=== PATIENT | female | born 1990 | race American Indian/Alaskan Native ===

== ENCOUNTER 2019-01-15 09:25 | Inpatient (IN) | payer MEDICAID, OTHER ==
--- NOTE | 2019-01-15 09:58 | History and Physical Report ---
History of Present Illness Date of examination: 01/15/19 Date of admission: 01/15/19 09:25 Chief complaint: SIUP at 39 weeks an 2 days not in labor. Previous C/section. History of present illness: Patient is a 28 year old , LMP 04/15/18, EDC 01/20/19 at 39 weeks and 2 days gestation who was admitted for elective repeat C/section. She denies any contractions, fluid leakage, or bleeding. She reports good movement. Past History Past Medical History: other (anemia) Past Surgical History: section Family/Genetic History: none Social history: no significant social history - Obstetrical History Expected Date of Delivery: 01/20/19 Actual Gestation: 39 Week(s) 2 Day(s) : 2 Para: 1 Number of Living Children: 1 - Physical Exam Cardiovascular: Normal S1, Normal S2 Lungs: Positive: Clear to auscultation Vulva: both: normal Adnexa: both: normal Deep Tendon Reflex Grade: Normal +2 - Obstetrical FHR: category 1 Uterine Contraction Monitor Mode: External Cervical Dilatation: 0 Cervical Effacement Percentage: 0 station: -2 Uterine Contraction Pattern: Absent Results All other labs normal. Assessment and Plan - Patient Problems (1) 39 weeks gestation of Current Visit: Yes Status: Acute (2) Previous section Current Visit: Yes Status: Acute Plan to address problem: Admit to labor floor. Routine preop labs. IV hydration. Keep NPO. monitoring. Admit to labor floor. Patient was counselled for repeat C/section. Risks, benefits, and alternatives of the procedure were discussed in detail with the patient which included but not limited to the risk of infection, hemorrhage requiring blood transfusion, injury to the bowel or bladder and blood vessels. The patient expressed understanding, her questions were answered, and she gave informed consent. Anesthesia notified. (3) Patient declines vaginal after section () Current Visit: Yes Status: Acute
[2019-01-15] MEDS ORDERED: PITOCin/NS 20 UNIT/1000ML DRIP 20 UNITS/1,000 ML BAG IV SCH ×2 (10:00→14:00)
[2019-01-15] MEDS: LACTATED RINGERS 1,000 ML IV SCH ×3 (10:10→22:14)
[2019-01-15 10:26] LABS: Basophils % (Auto) 0.5 % (0.0-1.8); Eosinophils % (Auto) 0.7 % (0.0-4.3); Hematocrit 34.8 % (30.3-42.9); Hemoglobin 11.4 gm/dl (10.1-14.3); Lymphocytes # (Auto) 1.6 K/mm3 (1.2-5.4); Lymphocytes % (Auto) 30.9 % (13.4-35.0); Mean Corpuscular HGB Conc 33 % (30-34); Mean Corpuscular Volume 85 fl (79-97); Monocytes # (Auto) 0.4 K/mm3 (0.0-0.8); Monocytes % (Auto) 8.8 % (0.0-7.3); Platelet Count 144 K/mm3 (140-440); Red Blood Count 4.09 M/mm3 (3.65-5.03); Red Cell Distribution Width 14.4 % (13.2-15.2)
[2019-01-15] MEDS ORDERED: SUBLIMAZE ONE (10:48)
[2019-01-15] MEDS ORDERED: SODIUM CHLORIDE FLUSH SYRINGE 10 ML IV PRN (11:00)
[2019-01-15] MEDS ORDERED: ANCEF/STERILE WATER 2 GM/20 ML 2 GM/20 ML SYRINGE IV NR (11:30)
[2019-01-15] MEDS ORDERED: ZOFRAN IV PRN ×2 (11:30→13:18)
[2019-01-15] MEDS ORDERED: BICITRA PO NR (11:30)
[2019-01-15] MEDS ORDERED: NARCAN 0.4 MG/1 ML IV PRN ×2 (11:30→13:18)
[2019-01-15] MEDS ORDERED: DILAUDID IV PRN (11:30)
[2019-01-15] MEDS ORDERED: REGLAN IV NR (11:30)
[2019-01-15] MEDS ORDERED: PEPCID IV NR (11:30)
[2019-01-15] MEDS ORDERED: ANCEF IV ONE (11:52)
[2019-01-15] MEDS ORDERED: METHERGINE IM ONE (12:46)
[2019-01-15] MEDS ORDERED: TORADOL ONE (13:02)
[2019-01-15] MEDS ORDERED: MYLICON PO PRN (13:18)
[2019-01-15] MEDS ORDERED: MORPHINE IV PRN (13:18)
[2019-01-15] MEDS ORDERED: MILK OF MAGNESIA PO PRN (13:18)
[2019-01-15] MEDS ORDERED: TORADOL IV PRN (13:18)
[2019-01-15] MEDS ORDERED: LANSINOH TP PRN (13:18)
[2019-01-15] MEDS ORDERED: TYLENOL PO PRN (13:18)
[2019-01-15] MEDS ORDERED: TUCKS PAD TP PRN (13:18)
[2019-01-15] MEDS ORDERED: PHENERGAN PR PRN (13:18)
[2019-01-15] MEDS ORDERED: ANUCORT-HC PR PRN (13:18)
--- NOTE | 2019-01-15 13:21 | Operative Report ---
Operative Report Operative Report: Preoperative diagnosis 1. SIUP at 39 weeks and 2 days gestation not in labor. 2. Previous C/section. 3. Declined . Postoperative diagnosis: Same. Procedure: Repeat low-transverse section. Surgeon: Dr. Chapa Engineering Instructor: none Anesthesia: epidural. IVF: RL 1700 cc EBL: 500 cc Urine: 100 cc clear Complications: none. Intraoperative findings: 1. A female infant found in an EBEN position, delivered at 12:38 PM, Apgars 8 at 1 minute and 9 at 5 minutes, weight 6 lbs. 3 oz. 2. Normal fallopian tubes and ovaries bilaterally. Procedure details: Risks, benefits, and alternatives of the procedure were discussed in detail with the patient which included but not limited to the risk of infection, hemorrhage requiring blood transfusion, injury to the bowel or bladder and blood vessels. The patient expressed understanding, her questions were answered, and she gave informed consent. The patient was taken to the operating room with an IV fluid infusing Ringers lactate. In the operating room, she was placed in a sitting position and given spinal anesthesia. She was then placed in a dorsal supine position with a leftward tilt. Ramirez catheter in Venodyne boots were placed. The abdomen was washed and she was prepared and draped in usual sterile fashion. After confirming adequate anesthesia, the Pfannenstiel skin incision was made in the lower abdomen about 2 cm above the pubic symphysis using the scalpel. This incision was carried down to the underlying fascia using the Bovie. The fascia was opened bilaterally in a curvilinear fashion using the Bovie. 2 straight Kocker clamps were used to grasp the upper edge of the fascia from which the underlying rectus abdominis muscles was dissected off using the Bovie. A similar procedure was done with the lower edge of the fascia to dissect the underlying rectus abdominis muscle. The muscle was bluntly from the midline by pulling. The parietal peritoneum was grasped with 2 hemostat clamps and entered sharply using Metzenbaum scissors. A quick survey of the anatomy revealed a gravid uterus, normal fallopian tubes and ovaries bilaterally. A bladder flap was created. Kody'O retractor was placed in the incision for proper visualization. A low transverse incision was made in the lower uterine segment using the scalpel and extended bilaterally in a curvilinear fashion using bandage scissors. There was copious amount of clear amniotic fluids. The was found in an EBEN position, the head was delivered atraumatically followed by the delivery of the shoulders and the rest of the body at 12:38 PM. The cord was clamped 2 and cut and the infant was handed off to the waiting loss prevention investigator. The infant was a female, Apgars were 8 at 1 minute and 9 at 5 minutes, weight was 6 pounds and 3 ounces. Cord blood was collected. The placenta was delivered manually and it was complete with a three-vessel cord. The uterine cavity was cleaned of clots and debris using dry lap sponges. The uterine incision was repaired in a running locked fashion using 0 Vicryl sutures. A second layer of imbrication was placed. The gutters were cleaned of clots and debris using dry lap sponges. After confirming adequate hemostasis, the instruments were removed from the abdominal cavity. The rectus muscle was reapproximated in an interrupted fashion using 0 Vicryl sutures. The fascia was closed in a running fashion using 0 Vicryl sutures. The skin was closed in a subsutaneous fashion using 4 vicryl on a Jude needle. Sterile dressing was placed. The counts of laps, needles, sponges, and instruments were correct 2. The patient tolerated the procedure well, she was taken to the recovery room in a stable condition.
--- NOTE | 2019-01-15 13:32 | Post Anesthesia Evaluation ---
- Post Anesthesia Evaluation Patient Participated: Yes Airway Patent: Yes Stable Respiratory Function: Yes Nausea/Vomiting: No Temp > 96.8F: Yes Pain Manageable: Yes Adequeate Hydration: Yes Anesthesia Complications: No Block Receding Appropriately: Yes Patient on Ventilator: No Other Comments: Pt to PACU via stretcher. VSS. Explained (via exhibition designer) that spinal would recede and OBGYN would be responsible for pain management on floor. Report to BASS FISHER. Care turned over to nursing staff and request to call me if questions or concerns.
[2019-01-15] MEDS ORDERED: SENOKOT PO PRN (13:43)
[2019-01-15] MEDS ORDERED: SODIUM CHLORIDE FLUSH SYRINGE 10 ML IV SCH (14:00)
[2019-01-15] MEDS: MORPHINE IV PRN (15:08)
[2019-01-15] MEDS: TORADOL IV PRN (22:20)
[2019-01-16 00:56] LABS: Hematocrit 35.1 % (30.3-42.9)
[2019-01-16] MEDS: MORPHINE IV PRN (01:59)
[2019-01-16] MEDS: TORADOL IV PRN (08:00)
--- NOTE | 2019-01-16 09:44 | Progress Note ---
Assessment and Plan A: 28 yo, , POD1 Dressing dry and intact Pain controlled with medication P: Continue routine PP orders Anticipate discharge home in 24-48 hrs Subjective - Subjective Date of service: 01/16/19 (939) Interval history: See admission H & P and operative report Patient reports: appetite normal, voiding normally, pain well controlled (with medications), flatus, ambulating normally, no bowel movement [place]: doing well, bottle feeding Objective - Vital Signs Latest vital signs: Vital Signs Temp Pulse Resp BP BP Pulse Ox 01/16/19 08:32 98.0 F 77 18 101/69 100 01/16/19 05:05 98.5 F 83 18 92/62 95 01/16/19 01:02 97.8 F 71 20 99/65 100 01/15/19 21:19 98.4 F 63 20 104/69 99 01/15/19 14:39 97.6 F 92 H 20 100 01/15/19 14:30 97.6 F 72 20 123/66 98 01/15/19 14:00 92 H 20 102/61 100 01/15/19 13:45 90 18 102/61 100 01/15/19 13:40 91 H 18 100/65 100 01/15/19 13:35 97.6 F 94 H 18 101/63 100 01/15/19 13:32 97.6 F 97 H 12 99/69 100 01/15/19 11:13 98.1 F 93 H 18 101/64 01/15/19 11:07 93 H 101/64 Intake and Output 01/15/19 01/16/19 01/16/19 23:59 07:59 15:59 Intake Total 120 Output Total 1600 1950 300 Balance -1600 -1830 -300 Intake: Oral 120 Output: Urine 1600 1950 300 Indwelling Catheter 1600 1000 Void 950 300 Other: Total, Intake Amount 120 Total, Output Amount 1000 600 300 # Voids Void 2 3 - Exam Breasts: Present: normal Cardiovascular: Present: Regular rate, Normal S1, Normal S2 Lungs: Present: Clear to auscultation, Normal air movement Abdomen: Present: tenderness, normal bowel sounds Uterus: Present: firm, fundal height at umbilicus Extremities: Present: normal Deep Tendon Reflex Grade: Normal +2 Incision: Present: dressed (no shadow drainage noted) - Labs Labs: Abnormal lab results 01/15/19 Range/Units 10:08 [place] % (Auto) 8.8 H (0.0-7.3) %
[2019-01-16] MEDS: FEOSOL PO SCH (09:55)
[2019-01-16] MEDS: PRENATAL VITAMIN PO SCH (09:55)
[2019-01-16] MEDS: PERCOCET 5/325 PO PRN ×3 (09:59→22:09)
[2019-01-16] MEDS: IBUPROFEN PO PRN ×2 (16:07→22:09)
[2019-01-17] MEDS: PERCOCET 5/325 PO PRN ×2 (05:25→12:40)
[2019-01-17] MEDS: IBUPROFEN PO PRN ×2 (05:26→12:39)
[2019-01-17] MEDS: FEOSOL PO SCH (10:12)
[2019-01-17] MEDS: PRENATAL VITAMIN PO SCH (10:12)
--- NOTE | 2019-01-17 10:15 | Progress Note ---
Assessment and Plan A: POD #2 Stable P: Follow routine orders D/C Home today per patient request RTO in One Week Subjective - Subjective Date of service: 01/17/19 Patient reports: appetite normal, voiding normally, pain well controlled, flatus, ambulating normally : doing well, bottle feeding Objective - Vital Signs Latest vital signs: Vital Signs Temp Pulse Resp BP BP Pulse Ox 01/17/19 08:49 97/60 01/17/19 07:10 97.9 F 82 18 82/45 01/17/19 00:44 97.7 F 85 20 94/57 99 01/16/19 17:14 98.2 F 83 18 100/69 100 Intake and Output 01/16/19 01/17/19 01/17/19 22:59 06:59 14:59 Intake Total 840 240 480 Balance 840 240 480 Intake: Oral 480 240 480 Intake, Free Water 360 Other: Total, Intake Amount 480 240 480 # Voids Indwelling Catheter 1 Void 2 - Exam Breasts: Present: normal Cardiovascular: Present: Regular rate Lungs: Present: Clear to auscultation, Normal air movement Abdomen: Present: normal appearance, soft, normal bowel sounds Uterus: Present: normal, firm, fundal height below umbilicus Extremities: Present: normal Incision: Present: normal, dry, intact
--- NOTE | 2019-01-17 10:16 | Discharge Summary ---
Providers - Providers Date of Admission: 01/15/19 09:25 Date of discharge: 01/17/19 Attending physician: KELLIE SMITH MD Primary care physician: KELLIE SMITH MD Hospitalization Reason for admission: section Delivery: Procedure: repeat low transverse Episiotomy: none Laceration: none Incision: normal, dry, intact Other procedures: none complications: none Discharge diagnosis: IUP at term delivered Condition at discharge: Good Disposition: DC-01 TO HOME OR SELFCARE Plan - Discharge Medications Prescriptions: Ibuprofen [Motrin] 800 mg PO Q8HR PRN #30 tablet PRN Reason: Pain, Moderate (4-6) oxyCODONE /ACETAMINOPHEN [Percocet 5/325] 1 tab PO Q4HR #20 tab - Provider Discharge Summary Activity: routine, no sex for 6 weeks, no heavy lifting 4 weeks, no strenuous exercise Diet: routine Instructions: routine Additional instructions: [] Smoking cessation referral if applicable(refer to patient education folder for contact #) [] Refer to [facility] Book[facility] Call your doctor immediately for: * Fever > 100.5 * Heavy vaginal bleeding ( >1 pad per hour) * Severe persistent headache * Shortness of breath * Reddened, hot, painful area to leg or breast * Drainage or odor from incision. * Keep incision clean and dry at all times and follow doctor's instructions regarding bathing/showering - Follow up plan Follow up: KELLIE SMITH MD [Primary Care Provider] - 7 Days
[2019-01-17 16:30] VITALS: BP 100/68
== END 2019-01-17 16:51 | disposition home or self-care (01) | DRG 788 ==
LOC: APU 09:25 → OB 14:29
PROVIDERS: ADMIT Obstetrics & Gynecology; ATTEND Obstetrics & Gynecology
PROC: 10D00Z1 Extraction of Products of Conception, Low, Open Approach (ICD-10-PCS; principal; 2019-01-15)
DX: O34.211 Maternal care for low transverse scar from previous cesarean delivery (principal); Z3A.39 39 weeks gestation of pregnancy; Z37.0 Single live birth
CPT/HCPCS: 36415; 85014; 85018; 85025; 86850; 86900; 86901; G0378; J0690; J1885; J2210; J2270; J2405; J2590; J2765; J3010; J7120